=== PATIENT | male | born 1990 | race Caucasian/White ===

== ENCOUNTER 2017-03-12 23:34 | Emergency (ER) | payer OTHER ==
[~2017-03-12] VITALS: Ht 175.3 cm; Wt 80.5 kg
[2017-03-13 02:10] VITALS: BP 133/82
== END 2017-03-13 02:10 | disposition home or self-care (01) ==
LOC: EMS 23:36
DX: S00.83XA Contusion of other part of head, initial encounter (principal); F17.210 Nicotine dependence, cigarettes, uncomplicated; Y04.2XXA Assault by strike against or bumped into by another person, initial encounter; Y93.89 Activity, other specified; Y92.89 Other specified places as the place of occurrence of the external cause; Y99.8 Other external cause status
CPT/HCPCS: 70450; 72125; 99284